=== PATIENT | female | born 1970 | race Caucasian/White ===

== ENCOUNTER 2021-09-22 08:48 | Observation (INO) ==
[2021-09-22 10:22] LABS: ABS Basophils 0.1 10^3/ul (0-0.2); ABS Eosinophils 0.2 10^3/ul (0-0.6); ABS Lymphocytes 1.6 10^3/ul (1.0-4.8); ABS Monocytes 0.6 10^3/ul (0-0.8); ABS Neutrophils 5.8 10^3/ul (1.5-7.7); Eosinophil % 2.2 %; Hematocrit 45 % (35-47); Hemoglobin 14.9 g/dL (12.0-16.0); Lymphocyte % 19.6 %; Mean Corpuscular HGB Conc 33 g/dL (31-36); Mean Corpuscular Hemoglobin 31 pg (27-31); Mean Corpuscular Volume 94 fL (80-97); Mean Platelet Volume 7.3 fL (7.4-10.4); Nucleated Red Blood Cells % 0.1; Platelet Count 343 10^3/uL (150-450); Red Cell Distribution Width 13 % (10-15); White Blood Count 8.3 10^3/uL (3.5-10.8)
[2021-09-22 10:43] LABS: High Sens Troponin Baseline < 3 pg/mL (<15)
[2021-09-22 10:53] LABS: Activated Partial Thrombo Time 23.7 seconds (26.0-38.0); INR 0.98 (0.86-1.15)
[2021-09-22 11:52] LABS: ALT 16 U/L (7-52); AST 17 U/L (13-39); Albumin/Globulin Ratio 1.1 (1-3); Alkaline Phosphatase 51 U/L (35-149); Anion Gap 9 mmol/L (2-11); Blood Urea Nitrogen 14 mg/dL (6-24); CO2 Carbon Dioxide 26 mmol/L (22-32); Calcium 9.6 mg/dL (8.6-10.3); Chloride 102 mmol/L (101-111); Globulin 3.5 g/dL (2-4); Glucose 90 mg/dL (70-100); Magnesium 1.9 mg/dL (1.9-2.7); Potassium 4.3 mmol/L (3.5-5.0); Sodium 137 mmol/L (135-145); Total Protein 7.5 g/dL (6.4-8.9); eGFR CKD-EPI 90.5 (>60)
[2021-09-22 12:05] LABS: TSH Ultra Thyroid Stim Horm 3.43 mcIU/mL (0.34-5.60)
[2021-09-22 13:02] LABS: High Sensitivity Troponin 1 Hr < 3 pg/mL (<15)
[2021-09-22] MEDS ORDERED: Gadoteridol (CONTRAST) 279.3 MG/ML 10 ML IV ONE (16:14)
[2021-09-22] MEDS ORDERED: Heparin DRIP 25,000 UNITS BAG 25,000 UNITS/500 ML BAG IV SCH ×2 (19:00→20:15)
[2021-09-22] MEDS ORDERED: Heparin 5000 UNITS/ML 1 mL VIAL IV SCH ×2 (19:00→21:00)
[2021-09-22] MEDS ORDERED: NS 0.9% 1000 ml BAG 1,000 ML IV ONE (19:01)
[2021-09-22] MEDS ORDERED: NS 0.9% 1000 ml BAG 1,000 ML IV SCH (19:15)
[2021-09-22 19:32] LABS: ABS Basophils 0.1 10^3/ul (0-0.2); ABS Eosinophils 0.3 10^3/ul (0-0.6); ABS Lymphocytes 3.2 10^3/ul (1.0-4.8); ABS Monocytes 0.7 10^3/ul (0-0.8); ABS Neutrophils 3.7 10^3/ul (1.5-7.7); Eosinophil % 3.5 %; Hematocrit 42 % (35-47); Hemoglobin 13.9 g/dL (12.0-16.0); Mean Corpuscular HGB Conc 33 g/dL (31-36); Mean Corpuscular Hemoglobin 31 pg (27-31); Mean Corpuscular Volume 94 fL (80-97); Mean Platelet Volume 7.5 fL (7.4-10.4); Platelet Count 335 10^3/uL (150-450); Red Blood Count 4.52 10^6 /uL (3.70-4.87); Red Cell Distribution Width 13 % (10-15); White Blood Count 7.9 10^3/uL (3.5-10.8)
[2021-09-22 19:48] LABS: eGFR CKD-EPI 84.1 (>60)
[2021-09-22 19:55] LABS: HCG Pregnancy 0.81 mIU/mL
[2021-09-22 23:29] LABS: Free T4 0.81 ng/dL (0.61-1.12)
[2021-09-23] MEDS: NS 0.9% 1000 ml BAG 1,000 ML IV SCH ×2 (00:57→09:50)
[2021-09-23 07:46] LABS: Ferritin 29.8 ng/mL (11-307)
[2021-09-23 16:45] VITALS: BP 144/71
[2021-09-24 14:12] LABS: Free Protein S Antigen 70 % (65 - 160)
[2021-09-24 15:18] LABS: DRVVT Screen Ratio 0.94 ratio (<1.20); LAC APTT 24 sec (25 - 37); Protein C Activity 173 % (70 - 150); Prothrombin Time(LAC) 11.3 sec (9.4 - 12.5)
[2021-09-24 19:29] LABS: Phospholipid Ab IgG < 9.4 GPL; Phospholipid Ab IgM, S < 9.4 MPL
[2021-09-26 09:54] LABS: Factor V Leiden Mutation Negative (Negative)
== END 2021-09-23 17:45 | disposition home or self-care (01) ==
LOC: ED 08:48 → SUATTDRO 20:44 → INTOOBSV 20:44 → EDHOLD 20:44 → MEDTELE 09-23 00:25
PROVIDERS: ADMIT Internal Medicine; ATTEND Hospitalist